=== PATIENT | female | born 1960 | race Caucasian/White ===

== ENCOUNTER 2019-04-13 | Day surgery (SDC) | payer OTHER ==
[~2019-04-13] MED LIST: AMLODIPINE BESY10 MG PO; ASPIRIN ADULT L81 M2 PO; ATENOLOL50 MG PO; ELIQUIS5 MG PO; GNP MELATONIN3 MG PO; HYDROCHLOROT12.5 MG PO; K-TAB20 MEQ PO; LEVOTHYROXIN150 MCG PO; LIPITOR10 M1 PO; MULTI VIT PO; TRAZODONE50 MG PO
[2019-04-13] MEDS ORDERED: PERCOCET 5/325M1 TAB PO (10:21)
== END 2019-04-13 12:05 | disposition home or self-care (01) ==
DX: T81.83XA Persistent postprocedural fistula, initial encounter (principal); K63.2 Fistula of intestine; I48.91 Unspecified atrial fibrillation; K44.9 Diaphragmatic hernia without obstruction or gangrene; K43.0 Incisional hernia with obstruction, without gangrene; Y83.3 Surgical operation with formation of external stoma as the cause of abnormal reaction of the patient, or of later complication, without mention of misadventure at the time of the procedure; Z86.73 Personal history of transient ischemic attack (TIA), and cerebral infarction without residual deficits; Z79.01 Long term (current) use of anticoagulants
CPT/HCPCS: J0131; J1100; J2710

== ENCOUNTER 2020-04-13 12:22 | Emergency (ER) | payer OTHER ==
[~2020-04-13] VITALS: Ht 162.6 cm; Wt 68.0 kg
[~2020-04-13 12:22] MED LIST changes: +PERCOCET 5/325M1 TAB PO
[2020-04-13] MEDS ORDERED: HYDROCHLOROTHIA50 MG PO (13:07)
[2020-04-13 15:47] VITALS: BP 112/52
== END 2020-04-13 16:01 | disposition home or self-care (01) ==
LOC: ED 12:22
DX: S93.601A Unspecified sprain of right foot, initial encounter (principal); I10 Essential (primary) hypertension; X50.0XXA Overexertion from strenuous movement or load, initial encounter; Y92.009 Unspecified place in unspecified non-institutional (private) residence as the place of occurrence of the external cause; Z86.73 Personal history of transient ischemic attack (TIA), and cerebral infarction without residual deficits

== ENCOUNTER → 2021-01-21 | Day surgery (SDC) | payer MEDICARE, OTHER ==
[~2021-01-21] VITALS: Ht 162.6 cm; Wt 70.3 kg
[~2021-01-21] MED LIST changes: +ADULT ASPIRIN R81 MG; +ATORVASTATIN CA10 MG PO; +GABAPENTIN100 MG PO; +HYDROCHLOROTHIA50 MG PO; +LEVOTHYROXIN100 MCG PO; +PERCOCET 5/321 COMBO PO; +PROLIA60 MG/ML SC; +PROMETHAZINE HY25 M1 PO; +ROSUVASTATIN CA20 MG PO; +SPIRIVA RE2.5 MCG/AC; +XARELTO20 MG PO
[2021-01-21 13:17] VITALS: BP 112/56
== END | disposition home or self-care (01) ==
LOC: ORM 08:00
PROVIDERS: ATTEND Surgery
PROC: 0WUF4JZ Supplement Abdominal Wall with Synthetic Substitute, Percutaneous Endoscopic Approach (ICD-10-PCS; principal; 2021-01-21)
DX: K43.2 Incisional hernia without obstruction or gangrene (principal); I10 Essential (primary) hypertension; I48.91 Unspecified atrial fibrillation; I48.0 Paroxysmal atrial fibrillation; G62.9 Polyneuropathy, unspecified; Z79.01 Long term (current) use of anticoagulants; Z86.73 Personal history of transient ischemic attack (TIA), and cerebral infarction without residual deficits
CPT/HCPCS: J0131; J2710

== ENCOUNTER 2021-01-23 18:36 | Emergency (ER) | payer MEDICARE, OTHER ==
[~2021-01-23] VITALS: Ht 162.6 cm; Wt 68.0 kg
[~2021-01-23 18:36] MED LIST changes: -PROMETHAZINE HY25 M1 PO
[2021-01-23 19:42] LABS: HEMATOCRIT 42.8 % (37.0-47.0); HEMOGLOBIN 13.7 g/dl (12.0-16.0); IMMATURE GRANULOCYTES 0.1 % (0.0-5.0); MEAN CELL VOLUME 89.2 fL CALC (80.0-100.0); MEAN CORPUSCULAR HGB 28.5 pG CALC (26.0-32.0); NEUT# 11.25 thou/uL (2.00-7.15); RED BLOOD COUNT 4.8 mill/uL (4.20-5.60); RED CELL DISTRI WIDTH 13.2 % (11.5-15.5)
[2021-01-23 20:01] LABS: ALBUMIN 4.5 g/dL (3.2-5.0); ALKALINE PHOSPHATASE 145 u/l (38-126); AMYLASE 74 u/l (30-110); ANION GAP 14 (6-22 (CALC)); BILIRUBIN, TOTAL 0.7 mg/dL (0.0-1.4); BUN 15 mg/dL (8-23); BUN/CREATININE RATIO 16 (12-20 (CALC)); CARBON DIOXIDE 28 mmol/l (22-30); CHLORIDE 99 mmol/l (95-108); CREATININE 0.9 mg/dL (0.5-1.0); GFR > 60 ML/MIN (>=60 (CALC)); GFR FOR AFR.AMER. > 60 ML/MIN (>=60 (CALC)); LIPASE 85 u/l (23-300); POTASSIUM 4.5 mmol/l (3.5-5.1); SGOT/AST 34 u/l (9-36); SODIUM 137 mmol/l (137-146); TOTAL PROTEIN 8.3 g/dL (6.3-8.2)
[2021-01-23 20:17] LABS: URINE BILIRUBIN - DIPSTICK NEGATIVE (NEGATIVE); URINE BLOOD DIPSTICK NEGATIVE (NEGATIVE); URINE COLOR YELLOW; URINE GLUCOSE - DIPSTICK NEGATIVE (NEGATIVE); URINE KETONE TRACE mg/dL (NEGATIVE); URINE LEUK ESTERASE TRACE (NEGATIVE); URINE PROTEIN - DIPSTICK NEGATIVE (NEG-TRACE); URINE SPECIFIC GRAVITY >=1.030; URINE UROBILINOGEN - DIPSTICK 0.2 E.U./dL (0.2)
[2021-01-23 20:18] LABS: URINE NITRITE - DIPSTICK NEGATIVE (Negative)
[2021-01-23] MEDS ORDERED: PROMETHAZINE HY25 M1 PO (20:34)
[2021-01-23 20:40] VITALS: BP 127/69
== END 2021-01-23 21:02 | disposition home or self-care (01) ==
LOC: ED 18:36
PROVIDERS: Family Medicine
DX: R11.0 Nausea (principal); I10 Essential (primary) hypertension; I48.91 Unspecified atrial fibrillation; G62.9 Polyneuropathy, unspecified; Z98.890 Other specified postprocedural states